=== PATIENT | male | born 1955 | race Caucasian/White ===

== ENCOUNTER 2017-05-23 05:18 | Day surgery (SDC) | payer BC ==
[2017-05-23] MEDS: traMADol 50 MG TAB PO (05:53)
[2017-05-23] MEDS: GABAPENTIN 300 MG CAP PO ×2 (05:53→20:43)
[2017-05-23] MEDS: DEXAMETHASONE 1 MG TAB PO (05:53)
[2017-05-23] MEDS ORDERED: BUPIVACAINE 0.5% (SDV) 30 ML, morphine SULFATE (PF) 8 MG, EPINEPHrine 0.3 MG, KETOROLAC... IRR (06:00)
[2017-05-23] MEDS ORDERED: TRANEXAMIC ACID 1,000 MG in DEXTROSE 5% 100 ML IVPB (06:00)
[2017-05-23] MEDS ORDERED: CEFAZOLIN 2 GM/50 ML (PMX) 50 ML IVPB (06:00)
[2017-05-23] MEDS: CA CHLORIDE 10% 10 ML SYRINGE (06:52)
[2017-05-23] MEDS ORDERED: NEOSTIGMINE 3 MG/3 ML SYRINGE (06:57)
[2017-05-23] MEDS ORDERED: GLYCOPYRROLATE 0.4 MG INJ (06:57)
[2017-05-23] MEDS ORDERED: ROCURONIUM 50 MG INJ (06:57)
[2017-05-23] MEDS ORDERED: PROPOFOL 20 ML (06:57)
[2017-05-23] MEDS ORDERED: CEFAZOLIN 1 GM INJ (06:57)
[2017-05-23] MEDS ORDERED: MIDAZOLAM 1 MG/ML 2 ML INJ (06:58)
[2017-05-23] MEDS ORDERED: FENTAnyl 50 MCG/ML VIAL (06:58)
[2017-05-23] MEDS ORDERED: DEXAMETHASONE 4 MG/ML 1 ML INJ (06:59)
[2017-05-23] MEDS ORDERED: ROPIVACAINE 0.5 % 30 ML VIAL (06:59)
[2017-05-23] MEDS ORDERED: ONDANSETRON 4 MG INJ (06:59)
[2017-05-23] MEDS ORDERED: FENTAnyl 50 MCG/ML VIAL IV ×3 (08:00)
[2017-05-23] MEDS ORDERED: ALBUTEROL 0.083% (NEB) 2.5 MG/3 ML AMP HHN (08:00)
[2017-05-23] MEDS ORDERED: MIDAZOLAM 1 MG/ML 2 ML INJ IV (08:00)
[2017-05-23] MEDS ORDERED: hydrALAzine 20 MG INJ IV (08:00)
[2017-05-23] MEDS ORDERED: HYDROmorphONE (0.2 MG/ML) 10ML SYG IV ×3 (08:00)
[2017-05-23] MEDS ORDERED: MEPERIDINE 25 MG INJ IV (08:00)
[2017-05-23] MEDS ORDERED: IPRATROPIUM (NEB) 0.5 MG/2.5 ML AMP HHN (08:00)
[2017-05-23] MEDS ORDERED: EPHEDrine SULFATE 50 MG/5 ML SYG IV (08:00)
[2017-05-23] MEDS ORDERED: TRIMETHOBENZAMIDE 100 MG/ML VIAL IM (08:00)
[2017-05-23] MEDS ORDERED: ONDANSETRON 4 MG INJ IV ×2 (08:00→09:00)
[2017-05-23] MEDS ORDERED: LABETALOL HCL 20MG INJ IV (08:00)
[2017-05-23] MEDS ORDERED: OXYCODONE/ACETAMINOPHEN (5/325) TAB PO ×3 (08:00→09:00)
[2017-05-23] MEDS ORDERED: DIPHENHYDRAMINE 50 MG INJ IV ×2 (08:00→09:00)
[2017-05-23] MEDS: THROMBIN 5000 UNIT VIAL (08:23)
[2017-05-23] MEDS: POLYMYXIN/BACITRACIN 1L IRRIG (08:23)
[2017-05-23] MEDS ORDERED: ZOLPIDEM 5 MG TAB PO (09:00)
[2017-05-23] MEDS ORDERED: morphine 2 MG INJ IV ×2 (09:00)
[2017-05-23] MEDS ORDERED: KETOROLAC 15 MG INJ IV (09:00)
[2017-05-23] MEDS ORDERED: ACETAMINOPHEN 500 MG TAB PO (09:00)
[2017-05-23] MEDS ORDERED: MAGNESIUM HYDROXIDE 30ML CUP PO (09:00)
[2017-05-23] MEDS: TRANEXAMIC ACID 1,000 MG in DEXTROSE 5% 100 ML IV (09:55)
[2017-05-23] MEDS: SERTRALINE 100 MG TAB PO (11:48)
[2017-05-23] MEDS: SENNA/DOCUSATE NA (8.6MG/50MG) TAB PO ×2 (11:48→20:43)
[2017-05-23] MEDS: DEXAMETHASONE 2 MG TAB PO ×2 (11:48→17:48)
[2017-05-23] MEDS: CEFAZOLIN 1 GM/50 ML (PMX) 50 ML IVPB ×2 (11:49→17:48)
[2017-05-23] MEDS: ATORVASTATIN 40 MG TAB PO (20:43)
[2017-05-24] MEDS: DEXAMETHASONE 2 MG TAB PO ×2 (00:06→05:56)
[2017-05-24] MEDS: CEFAZOLIN 1 GM/50 ML (PMX) 50 ML IVPB (00:41)
[2017-05-24] MEDS: OXYCODONE/ACETAMINOPHEN (5/325) TAB PO ×2 (03:56→08:14)
[2017-05-24] MEDS: ASPIRIN 81 MG TAB PO (08:14)
[2017-05-24] MEDS: SERTRALINE 100 MG TAB PO (08:14)
[2017-05-24] MEDS: SENNA/DOCUSATE NA (8.6MG/50MG) TAB PO (08:15)
== END 2017-05-24 09:45 | disposition home or self-care (01) ==
LOC: SDS 05:18 → MS1 08:15 → SDS 05-24 09:45 → REC 08:51 → MS1 08:51 → SDS 08:15 → MS1 08:15
DX: M19.011 Primary osteoarthritis, right shoulder (principal); S46.211D Strain of muscle, fascia and tendon of other parts of biceps, right arm, subsequent encounter; X58.XXXD Exposure to other specified factors, subsequent encounter; E78.5 Hyperlipidemia, unspecified; I10 Essential (primary) hypertension; I48.0 Paroxysmal atrial fibrillation
CPT/HCPCS: 29824; 73030-RT; 86999; 97166; 97535